=== PATIENT | male | born 1995 | race Caucasian/White ===

== ENCOUNTER 2019-02-06 23:54 | Emergency (ER) | payer SELFPAY ==
[~2019-02-06] VITALS: Ht 210.8 cm; Wt 81.0 kg
[~2019-02-06 23:54] MED LIST: IBUP-1542 PO; NPH10OT LEFT EAR
[2019-02-06 23:57] VITALS: BP 149/79; PULSE 69; RESP 18; Ht 210.8 cm; Wt 81.0 kg
== END 2019-02-07 02:25 | disposition home or self-care (01) ==
LOC: FTE 23:54
DX: H92.02 Otalgia, left ear (principal)
CPT/HCPCS: 99283

== ENCOUNTER 2019-02-07 17:05 | Emergency (ER) | payer SELFPAY ==
[~2019-02-07] VITALS: Ht 188 cm; Wt 83.9 kg
[2019-02-07 17:16] VITALS: BP 146/66; Ht 188 cm; Wt 83.9 kg
--- NOTE | 2019-02-07 17:55 | ERD ---
ER Documentation Chief Complaint Chief Complaint LEFT EAR BLEEDING after using ear drop Rx fr here HPI 23-year-old male presents with left ear pain for last 3 to 4 days. He was seen here 2 days ago and diagnosed with otitis externa. He presents today for some bleeding from the left ear. He has a gauze with serosanguineous spotting. He has no fevers, vomiting, shortness of breath or chest pain. He has pain in the external ear and the area of infection. ROS All systems reviewed and are negative except as per history of present illness. Medications Home Meds Active Scripts Neomycin/Polymyxin/Hydrocort* (Cortisporin* Otic) 10 Ml Susp, 4 DROP LEFT EAR QID, #1 EA Prov:JUDITH FARRELL PA-C 02/07/19 Allergies Allergies: Coded Allergies: No Known Allergy (Unverified , 02/07/19) PMhx/Soc Medical and Surgical Hx: pt denies Medical Hx, pt denies Surgical Hx Hx Alcohol Use: No Hx Substance Use: No Hx Tobacco Use: No Smoking Status: Never smoker FmHx Family History: No diabetes, No coronary disease, No other Physical Exam Vitals Vital Signs Date Temp Pulse Resp B/P (MAP) Pulse Ox O2 O2 Flow FiO2 Time Delivery Rate 02/07/19 97.9 71 18 146/66 98 17:16 (92) Physical Exam Const: No acute distress Head: Atraumatic Eyes: Normal Conjunctiva ENT: Normal External Ears, Nose and Mouth. Irritation and exudate in the left external auditory canal. TMs grossly normal. No mastoid tenderness or external erythema. Pain with passive range of motion. No visible active bleeding. Neck: Full range of motion. No meningismus. Resp: Clear to auscultation bilaterally Cardio: Regular rate and rhythm, no murmurs Abd: Soft, non tender, non distended. Normal bowel sounds Skin: No petechiae or rashes Back: No midline or flank tenderness Ext: No cyanosis, or edema Neur: Awake and alert Psych: Normal Mood and Affect Results 24 hrs Current Medications Medications Dose Sig/Annalee Start Time Status Last (Trade) Ordered Route PRN Stop Time Admin Dose Reason Admin 650 mg ONCE ONCE 02/07/19 Acetaminophen PO 18:00 02/07/19 (Tylenol 18:01 Tab) Procedures/MDM Patient presents with left ear serosanguineous discharge associated with treatment for otitis externa. Appears to be just slight amount of irritation mixed with drops. No signs of perforation, mastoiditis, additional concerning signs or symptoms. We discharged home with reassurance, continuation of Cortisporin, recommendations for primary care follow-up and return precautions. The patient was stable with no new complaints during the ER course. Clinically, there is no current evidence to suggest meningitis, sepsis, acute abdomen, pneumonia, stroke, acute coronary syndrome, pulmonary embolism, aortic dissection or any other emergent condition appearing to require further evaluation or hospitalization. Patient counseled regarding my diagnostic impression and care plan. Prior to discharge all questions answered. Pt agrees with treatment plan and understands strict return precautions. Pt is instructed to follow up with primary care provider within 24-48 hours. Precautionary instructions provided including instructions to return to the ER if not improving or for any worsening or changing symptoms or concerns. Disclaimer: Inadvertent spelling and grammatical errors are likely due to EHR/dictation software use and do not reflect on the overall quality of patient care. Also, please note that the electronic time recorded on this note does not necessarily reflect the actual time of the patient encounter. Departure Diagnosis: Primary Impression: Left ear pain Condition: Stable Patient Instructions: External Ear Infection (Adult) Additional Instructions: Bleeding likely from irritation mixed with drops. Continue drops and clean discharge of blood with moist towel. Recheck for fevers, vomiting, new or worsening symptoms with primary care doctor. TYRESE BRAY MD Feb 07, 2019 17:55
[2019-02-07] MEDS ORDERED: ACETAMINOPHEN 325 MG TAB PO ONE (18:00)
[2019-02-07 18:59] VITALS: PULSE 87; RESP 18
== END 2019-02-07 18:59 | disposition home or self-care (01) ==
LOC: FTE 17:05
DX: H92.02 Otalgia, left ear (principal)
CPT/HCPCS: 99283